=== PATIENT | female | born 1945 | race Caucasian/White ===

== ENCOUNTER 2016-10-10 10:20 | Emergency (ER) | payer MEDICARE, OTHER ==
--- NOTE | ~2016-10-10 | EKG ---
PATIENT: BARAK DELEON UNIT #: [id number] Ventricular Rate: 75 BPM Atrial Rate: 75 BPM P-R Interval: 148 ms QRS Duration: 84 ms Q-T Interval: 436 ms QTC Calculation(Bezet): 486 ms P Gooding: 41 degrees Calculated R Gooding: -20 degrees Calculated T Gooding: 53 degrees Diagnosis Line: Normal sinus rhythm with sinus arrhythmia Diagnosis Line: Inferior infarct , age undetermined Diagnosis Line: Abnormal ECG Diagnosis Line: No previous ECGs available Diagnosis Line: Confirmed by SHIRA CHAUHAN MD ([id number]) on Diagnosis Line: 10/11/2016 2:42:36 PM INTERPRETING MD: GISSEL SAAB
--- NOTE | ~2016-10-10 | CT71 ---
[facility] A Service [facility] RADIOLOGY TEXT RESULTS PATIENT: BARAK DELEON LOCATION: SED : 49 UNIT #: [id number] AGE: [address]: Sarah Hewitt MD SEX: F ORDER DR: [id number] [place] [id number] E MR#: [id number] Acc #: [id number] NAME: BARAK DELEON : 1945 SEX: F STUDY DATE/TIME: 10/10/2016 11:13 UNIT: SED ROOM: STUDY DESCRIPTION: CT Head Wo Contrast Attending Physician: Sarah Hewitt M.D. Ordering Physician: Sarah Hewitt M.D. Primary Care Physician: Primary Care Physician No MEDICAL IMAGING REPORT This report is preliminary unless electronic signature is present. EXAM Head CT no contrast 10/10/2016 PROCEDURE Axial unenhanced head CT. The CT exam was performed with one or more of the following radiation dose reduction techniques: automatic exposure control, adjustment of mA and/or kV according to patient size, and iterative reconstruction. COMPARISON: Prior head CT 06/28/2016 CLINICAL HISTORY: Episode of dizziness during physical therapy today. 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 There is no evidence of any acute intracranial abnormality. Redemonstrated left occipital encephalomalacia, but no hydrocephalus or extraaxial fluid collection or positive mass effect. The extracranial soft tissues, skull base and calvaria are unremarkable. 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 Dictated by... Jose Singh M.D. THIS IS AN ELECTRONICALLY VERIFIED REPORT [facility] A Service [facility] RADIOLOGY TEXT RESULTS PATIENT: BARAK DELEON LOCATION: SED : 47 UNIT #: [id number] AGE: [address]: Sarah Hewitt MD SEX: F ORDER DR: Jose Singh M.D. at 10/14/2016 4:54 PM KRIS/haley TD: 10/10/2016 14:34 JOB #: [id number] MEDICAL IMAGING REPORT Page 1 of 1
--- NOTE | ~2016-10-10 | CR72 ---
[facility] A Service of [facility] RADIOLOGY TEXT RESULTS PATIENT: BARAK DELEON LOCATION: SED : 47 UNIT #: [id number] AGE: [address]: Sarah Hewitt MD SEX: F ORDER DR: [id number] [place] [id number] E MR#: [id number] Acc #: [id number] NAME: BARAK DELEON : 1945 SEX: F STUDY DATE/TIME: 10/10/2016 11:22 UNIT: SED ROOM: STUDY DESCRIPTION: CR Chest Single View Portable Attending Physician: Sarah Hewitt M.D. Ordering Physician: Sarah Hewitt M.D. Primary Care Physician: Primary Care Physician No MEDICAL IMAGING REPORT This report is preliminary unless electronic signature is present. EXAM Chest portable one-view HISTORY Short of air and near syncope during physical therapy today. COMPARISON: 06/07/2016 FINDINGS No acute pulmonary process. Redemonstrated elevation of the right hemidiaphragm but no consolidation, effusion, pneumothorax or acute abnormality. Dictated by... Jose Singh M.D. THIS IS AN ELECTRONICALLY VERIFIED REPORT Jose Singh M.D. at 10/14/2016 4:54 PM TEV/haley TD: 10/10/2016 14:27 JOB #: [id number] MEDICAL IMAGING REPORT Page 1 of 1
[2016-10-10] MEDS ORDERED: ZESTRIL10 M1 PO (10:37)
[2016-10-10] MEDS ORDERED: ELIQUIS5 MG PO (10:38)
[2016-10-10 11:04] LABS: BASOPHIL# 0.1 X10e3 (0-0.3); BASOPHIL% 1.3 % (0-2.5); EOSINOPHIL# 0.2 X10e3 (0-0.7); HEMATOCRIT 42.6 % (35.0-45.0); HEMOGLOBIN 14.5 gm/dL (12.0-16.0); LYMPHOCYTE# 3.5 X10e3 (1.0-3.5); LYMPHOCYTE% 33.8 % (17.0-45.0); MEAN CORPUSCULAR HEMOGLOBIN 30.6 PG (28-34); MONOCYTE# 0.4 X10e3 (0-1.0); MONOCYTE% 3.9 % (3.0-12.0); NEUTROPHIL# 6.1 X10e3 (1.5-7.1); PLATELET COUNT 333 X10e3 (140-420); RED BLOOD COUNT 4.74 X10e (3.90-5.30); WHITE BLOOD COUNT 10.3 X10e3 (4.0-10.5)
[2016-10-10 11:06] LABS: DIFF IND NO
[2016-10-10 11:24] LABS: POC - CKMB <1.0 ng/mL (0.0-7.9); POC - TROPONIN <0.05 ng/mL (<=0.05)
[2016-10-10 11:24] LABS: ALKALINE PHOSPHATASE 56 U/L (32-92); ALT (SGPT) 17 U/L (10-40); AST (SGOT) 23 U/L (10-42); BILIRUBIN,TOTAL 0.9 mg/dL (0.2-2.0); BLOOD UREA NITROGEN 11 mg/dL (9-23); BUN/CREATININE RATIO 9.16; CALCIUM SERUM 9.6 mg/dL (8.4-10.2); CARBON DIOXIDE 18 mmol/L (22-31); CHLORIDE 106 mmol/L (100-111); CREATININE SERUM 1.2 mg/dL (0.6-1.4); GLOM FILT RATE Estimated 46.1 mL/min (>60); GLUCOSE FASTING 185 mg/dL (70-110); POTASSIUM 3.3 mmol/L (3.5-5.1); PROTEIN TOTAL SERUM 7.5 g/dL (6.0-8.3); SODIUM 139 mmol/L (135-145)
[2016-10-10 11:33] LABS: BILIRUBIN, DIRECT <0.1 mg/dL (0.0-0.2); BILIRUBIN,INDIRECT 0.8 mg/dL (0.0-0.9)
[2016-10-10 12:53] LABS: URINE SOURCE CLEAN CATCH
[2016-10-10 13:02] LABS: URINE APPEARANCE CLEAR; URINE BILIRUBIN NEG (NEG); URINE BLOOD NEG (NEG); URINE COLOR YELLOW; URINE GLUCOSE NEG (NORM); URINE KETONE NEG (NEG); URINE LEUKOCYTE ESTERASE 1+ (NEG); URINE NITRATE NEG (NEG); URINE PROTEIN NEG (NEG); URINE SPECIFIC GRAVITY <=1.005 (1.003-1.035); URINE UROBILINOGEN 0.2 MG/DL (NORM)
[2016-10-10 13:07] LABS: MICRO INDICATED? YES
[2016-10-10 13:09] LABS: POC - CKMB <1.0 ng/mL (0.0-7.9)
[2016-10-10 13:10] LABS: POC - TROPONIN <0.05 ng/mL (<=0.05)
[2016-10-10 13:15] LABS: CULTURE INDICATED? YES; URINE BACTERIA 1+ (NEG); URINE RBC 0-2 /[HPF] (0-2)
[2016-10-10 13:16] LABS: URINE SQUAMOUS EPITHELIAL CELL OCCAS /[HPF]
== END 2016-10-10 13:47 | disposition home or self-care (01) ==
LOC: SED 10:20
PROVIDERS: Student in an Organized Health Care Education/Training Program
DX: R55 Syncope and collapse (principal); I51.9 Heart disease, unspecified; Z86.73 Personal history of transient ischemic attack (TIA), and cerebral infarction without residual deficits; Z90.710 Acquired absence of both cervix and uterus; Z79.01 Long term (current) use of anticoagulants; Z88.8 Allergy status to other drugs, medicaments and biological substances
CPT/HCPCS: 36415; 70450; 71010; 80048; 80076; 81003; 82553; 82947; 83880; 84484; 85025; 87086; 93005; 99285